=== PATIENT | male | born 1980 | race Caucasian/White ===

== ENCOUNTER 2021-06-14 05:31 | Emergency (ER) | payer SELFPAY ==
[~2021-06-14 05:31] MED LIST: AMOXICILLIN 50500 MG PO; AMOXICILLIN875 MG PO; NORCO 325 MG-51 TA1 PO; TYLENOL 325MG325 MG PO
[2021-06-14 06:43] LABS: BASO # 0.04 K/mm3 (0.02-0.10); EOS # 0.03 K/mm3 (0.04-0.40); EOS % 0.2 % (0.0-4.0); HEMATOCRIT 39.7 % (42.0-52.0); HEMOGLOBIN 13.8 g/dL (13.5-18.0); LYMPH# 2.19 K/mm3 (1.50-4.00); MEAN CELL VOLUME 97 fl (78-100); MEAN CORPUSCULAR HEMOGLOBIN 34 pg (27-31); MEAN CORPUSCULAR HGB CONC 35 g/dL (33-37); MEAN PLATELET VOLUME 8.9 fl (7.4-10.4); MONO # 0.79 K/mm3 (0.20-0.80); NEU # 13.09 K/mm3 (1.40-6.50); PLATELET COUNT 330 K/mm3 (130-400); WHITE BLOOD COUNT 16.2 K/mm3 (4.8-10.8)
[2021-06-14 06:51] LABS: ALBUMIN 3.7 g/dL (3.5-5.0); POTASSIUM 3.3 mmol/L (3.5-5.1)
[2021-06-14 06:52] LABS: CALCIUM 8.8 mg/dL (8.3-10.5)
[2021-06-14 06:53] LABS: TOTAL PROTEIN 6.3 g/dL (6.4-8.3)
[2021-06-14 06:55] LABS: TOTAL BILIRUBIN 0.4 mg/dL (0.2-1.2)
[2021-06-14 12:54] LABS: HEMATOCRIT 35.8 % (42.0-52.0); HEMOGLOBIN 12.1 g/dL (13.5-18.0)
[2021-06-14 14:23] VITALS: BP 113/72
== END 2021-06-14 13:40 | disposition short-term general hospital (02) ==
LOC: ED 05:31
PROVIDERS: Family Medicine
DX: S02.5XXA Fracture of tooth (traumatic), initial encounter for closed fracture (principal); X58.XXXA Exposure to other specified factors, initial encounter
CPT/HCPCS: 90715; J0690; J7120